=== PATIENT | male | born 1985 | race Two or more races ===

== ENCOUNTER 2017-06-08 22:57 | Emergency (ER) | payer OTHER ==
[~2017-06-08] VITALS: Ht 167.6 cm; Wt 97.0 kg
[2017-06-09] MEDS ORDERED: BACITRACIN ZINC OINT UDPKT TOP ONE ×2 (02:30→03:15)
[2017-06-09] MEDS ORDERED: TETANUS, DIPHTHERIA, PERTUSSIS VAC/PF 0.5ML (>7YR OLD) IM ONE (02:30)
[2017-06-09] MEDS ORDERED: HYDROCODONE/ACETAMINOPHEN 5/325MG TABLET PO ONE (02:30)
[2017-06-09] MEDS ORDERED: LIDOCAINE HCL 1% 20ML VIAL (Pyxis) INJ MC ONE (02:30)
[2017-06-09 02:59] VITALS: BP 117/68
[2017-06-09] MEDS ORDERED: IBUPROFEN 600MG TABLET PO ONE (03:00)
== END 2017-06-09 03:45 | disposition home or self-care (01) ==
LOC: ER 22:57
DX: S61.211A Laceration without foreign body of left index finger without damage to nail, initial encounter (principal); F17.210 Nicotine dependence, cigarettes, uncomplicated; W26.0XXA Contact with knife, initial encounter; Y93.89 Activity, other specified; Y92.018 Other place in single-family (private) house as the place of occurrence of the external cause
CPT/HCPCS: 12001; 90471; 90715; 99284; J3490; X7700; Z7610